=== PATIENT | male | born 1970 | race African-American/Black ===

== ENCOUNTER 2018-10-22 10:47 | Inpatient (IN) | payer OTHER ==
--- NOTE | 2018-10-22 13:38 | PDOC ---
History of Present Illness - General History Source: Patient Exam Limitations: No Limitations - History of Present Illness Initial Comments: 10/22/18 13:38 48YOM without PMH but who has been estranged from primary care or any regular doctors for the past 6 years, who p/w asymptomatic high blood pressure as measured at his dentist's office. He was supposed to have a tooth extraction today and they needed to cancel it because of the blood pressure, which he notes was in the 180s systolic. He states his blood pressure has been a bit high in the past, but never this high. Denies f/c/n/v/d/c, SHARMA, vision changes, vertigo, lightheadedness, neck pain, SOB, abdominal pain, change in urination, n /t/w focally, or other symptoms. Does not take any regular medications. <VivarParvin - Last Filed: 10/22/18 18:22> <Jamaica Maloney - Last Filed: 10/22/18 18:41> - General Chief Complaint: Blood Pressure Problem Stated Complaint: HYPERTENSION Time Seen by Provider: 10/22/18 13:26 Past History - Past Medical History COPD: No - Suicide/Smoking/Psychosocial Hx Smoking History: Never smoked <Vivar,Parvin - Last Filed: 10/22/18 18:22> <Jamaica Maloney - Last Filed: 10/22/18 18:41> - Past Medical History Allergies/Adverse Reactions: Allergies Allergy/AdvReac Type Severity Reaction Status Date / Time No Known Allergies Allergy Verified 10/22/18 11:42 Home Medications: Ambulatory Orders Amoxicillin - [Amoxicillin 875mg Tablet -] 875 mg PO BID #20 tab 10/22/18 Review of Systems - Review of Systems Able to Perform ROS?: Yes Comments:: 10/22/18 13:40 GEN: no fever, chills, malaise, generalized weakness, or weight change HEENT: no ear pain, sore throat, vision change, or eye pain CV: no chest pain, palpitations, lightheadedness, syncope, or edema RESP: no cough, wheezing, or SOB GI: no abdominal pain, nausea, vomiting, diarrhea, constipation, or white/black/ bloody stool : no dysuria, hematuria, incontinence, retention, bleeding, or discharge MSK: no neck/back pain, muscle weakness/pain, or joint swelling/pain NEURO: no headache, seizure, vertigo, numbness, tingling, or focal weakness PSYCH: no substance use, no behavior change SKIN: no jaundice, no rash ROS otherwise negative except as noted in HPI <Parvin Vivar - Last Filed: 10/22/18 18:22> *Physical Exam - Vital Signs Last Vital Signs Temp Pulse Resp BP Pulse Ox 98.4 F 128 H 16 186/114 H 100 10/22/18 11:43 10/22/18 11:43 10/22/18 11:43 10/22/18 11:43 10/22/18 11:43 - Physical Exam Comments: 10/22/18 13:41 GENERAL: well-appearing, A/Ox4, no distress, answers questions appropriately HEENT: PERRLA, EOMI, moist mucous membranes NECK/BACK: no midline ttp, no spinal stepoff or deformity, no hematoma, full ROM , neck supple CARDIOVASCULAR: regular rate/rhythm, normal S1S2, no MGR, strong peripheral pulses, capillary refill <2 seconds, extremities wwp, no edema LUNGS/RESPIRATORY: no respiratory distress, CTAB GI/ABDOMEN: symmetric [id number], normoactive BS, soft, no ttp, no midline pulsatile masses : no CVA tenderness EXTREMITIES: no muscle atrophy, no acute deformity SKIN: warm and dry, no pallor, no jaundice, no rash, no bruising, no skin breakdown, no cuts, no lesions NEUROLOGICAL: GCS 15, CN II-XII grossly intact, 5/5 strength proximally and distally, no facial droop <Parvin Vivar - Last Filed: 10/22/18 18:22> - Vital Signs Last Vital Signs Temp Pulse Resp BP Pulse Ox 98.4 F 104 H 18 172/110 H 100 10/22/18 11:43 10/22/18 18:21 10/22/18 18:21 10/22/18 18:21 10/22/18 18:21 <Jamaica Maloney - Last Filed: 10/22/18 18:41> Moderate Sedation - Procedure Monitoring Vital Signs: Procedure Monitoring Vital Signs Temperature 98.4 F 10/22/18 11:43 Pulse Rate 128 H 10/22/18 11:43 Respiratory Rate 16 10/22/18 11:43 Blood Pressure 186/114 H 10/22/18 11:43 O2 Sat by Pulse Oximetry (%) 100 10/22/18 11:43 <Parvin Vivar - Last Filed: 10/22/18 18:22> - Procedure Monitoring Vital Signs: Procedure Monitoring Vital Signs Temperature 98.4 F 10/22/18 11:43 Pulse Rate 104 H 10/22/18 18:21 Respiratory Rate 18 10/22/18 18:21 Blood Pressure 172/110 H 10/22/18 18:21 O2 Sat by Pulse Oximetry (%) 100 10/22/18 18:21 <Jamaica Maloney - Last Filed: 10/22/18 18:41> Heart Score/ECG Review #1 10/22/18 14:04 Sinus tach, rate 114, normal axis and intervals, no ischemic ST-T changes <Parvin Vivar - Last Filed: 10/22/18 18:22> ED Treatment Course - LABORATORY CBC & Chemistry Diagram: 10/22/18 14:43 10/22/18 14:43 <Parvin Vivar - Last Filed: 10/22/18 18:22> - LABORATORY CBC & Chemistry Diagram: 10/22/18 14:43 10/22/18 14:43 - ADDITIONAL ORDERS Additional order review: Laboratory Results 10/22/18 14:43 Sodium 137 Potassium 3.9 Chloride 101 Carbon Dioxide 29 Anion Gap 8 BUN 12 Creatinine 0.9 Creat Clearance w eGFR > 60 Random Glucose 232 H Calcium 8.7 Total Bilirubin 0.9 AST 21 ALT 32 Alkaline Phosphatase 83 Creatine Kinase 100 Troponin I < 0.02 Total Protein 7.5 Albumin 4.0 10/22/18 14:43 RBC 4.66 MCV 89.8 MCHC 34.8 RDW 12.8 MPV 7.6 Neutrophils % 67.0 Lymphocytes % 25.3 Monocytes % 6.2 Eosinophils % 1.1 Basophils % 0.4 - Medications Given in the ED: ED Medications Discontinued Medications Generic Name Dose Route Start Last Admin Trade Name Freq PRN Reason Stop Dose Admin Amoxicillin 875 mg 10/22/18 16:53 10/22/18 16:57 Amoxicillin - PO 10/22/18 16:54 875 mg ONCE ONE Administration Labetalol HCl 10 mg 10/22/18 14:45 10/22/18 15:21 Normodyne Injection - IVPUSH 10/22/18 14:46 10 mg ONCE ONE Administration Labetalol HCl 10 mg 10/22/18 16:40 10/22/18 16:57 Normodyne Injection - IVPUSH 10/22/18 16:41 10 mg ONCE ONE Administration Sodium Chloride 1,000 ml 10/22/18 14:41 10/22/18 15:17 Normal Saline - IV 10/22/18 14:42 1,000 ml ONCE ONE Administration <Jamaica Maloney - Last Filed: 10/22/18 18:41> Medical Decision Making - Medical Decision Making 10/22/18 13:41 Adult male patient p/w HTN without symptoms. Initial Vital Signs Temp Pulse Resp BP Pulse Ox 98.4 F 128 H 16 186/114 H 100 10/22/18 11:43 10/22/18 11:43 10/22/18 11:43 10/22/18 11:43 10/22/18 11:43 Exam: As noted in Physical Exam section. DDX IBNLT: stress/pain response, primary (essential) HTN, renal disease, medications (e.g. OCPs, NSAIDs, antidepressants, steroids), hypercortisolism ( Cheryle syndrome), primary hyperaldosteronism (Conn syndrome), pheochromocytoma , hyper/hypothyroidism, hyperparathyroidism, coarctation of aorta, obstructive sleep apnea, etc. Main emergency concern is to r/o hypertensive emergency. W/U ordered: Labs as noted below EKG TX ordered: None Unlikely hypertensive emergency at Pt has no SHARMA, AMS, visual change, neuro sxs, angina, pulmonary edema, or e/o renal failure. EKG: Reviewed; results as noted in ECG Review section. Vital Signs Temperature 98.4 F 10/22/18 11:43 Pulse Rate 110 H 10/22/18 14:29 Respiratory Rate 18 10/22/18 14:29 Blood Pressure 173/107 H 10/22/18 14:29 O2 Sat by Pulse Oximetry (%) 100 10/22/18 14:29 The patient's repeat vitals show sustained high BP and tachycardia; he is given IV labetalol as ordered. Will also do labs at this point. Laboratory Tests 10/22/18 10/22/18 14:43 14:43 WBC 5.9 RBC 4.66 Hgb 14.6 Hct 41.9 MCV 89.8 MCH 31.2 MCHC 34.8 RDW 12.8 Plt Count 314 MPV 7.6 Absolute Neuts (auto) 3.9 Neutrophils % 67.0 Lymphocytes % 25.3 Monocytes % 6.2 Eosinophils % 1.1 Basophils % 0.4 Nucleated RBC % 0 Sodium 137 Potassium 3.9 Chloride 101 Carbon Dioxide 29 Anion Gap 8 BUN 12 Creatinine 0.9 Creat Clearance w eGFR > 60 Random Glucose 232 H Calcium 8.7 Total Bilirubin 0.9 AST 21 ALT 32 Alkaline Phosphatase 83 Creatine Kinase 100 Troponin I < 0.02 Total Protein 7.5 Albumin 4.0 Patient remains asymptomatic, exam benign, repeating vitals now as below: REPEAT VS 10/22/18 18:[address] Noble; patient going to Med/Surg obs. Decision to Admit order is placed to Dr. Noble. I have placed consult order for medical secretary vp public relations Dr. Quigley. <Parvin Vivar - Last Filed: 10/22/18 18:22> *DC/Admit/Observation/Transfer - Discharge Dispostion Decision to Admit order: Yes <Parvin Vivar - Last Filed: 10/22/18 18:22> - Discharge Dispostion Decision to Admit order: Yes Decision to Admit order Date/Time: 10/22/18 18:41 <Jamaica Maloney - Last Filed: 10/22/18 18:41> Diagnosis at time of Disposition: Hyperglycemia High blood pressure Qualifiers: Hypertension type: unspecified Qualified Code(s): I10 - Essential (primary) hypertension - Discharge Dispostion Condition at time of disposition: Guarded - Prescriptions Prescriptions: Amoxicillin - [Amoxicillin 875mg Tablet -] 875 mg PO BID #20 tab - Referrals Referrals: [facility] [place] [Provider Group] - Patient Instructions Printed Discharge Instructions: DI for High Blood Pressure
[2018-10-22] MEDS ORDERED: SODIUM CHLORIDE 0.9% 500 ML INFUS.BAG IV ONE (14:41)
[2018-10-22] MEDS ORDERED: LABETALOL HCL 5 MG/1 ML (100MG/20 ML VIAL) IVPUSH ONE ×2 (14:45→16:40)
[2018-10-22 15:19] LABS: BASO % 0.4 % (0-2.0); EOS % 1.1 % (0-4.5); HEMATOCRIT 41.9 % (35.4-49); HEMOGLOBIN 14.6 GM/dL (11.7-16.9); LYMPH % 25.3 % (8-40); MCH 31.2 pg (25.7-33.7); MCHC 34.8 g/dl (32.0-35.9); MEAN CELL VOLUME 89.8 fl (80-96); MEAN PLT VOLUME 7.6 fl (7.5-11.1); MONO % 6.2 % (3.8-10.2); PLATELET COUNT 314 K/MM3 (134-434); RBC 4.66 M/mm3 (4.00-5.60); RDW 12.8 % (11.9-15.9); WHITE BLOOD COUNT 5.9 K/mm3 (4.0-10.0)
[2018-10-22 16:40] LABS: ALK PHOS 83 U/L (45-117); ANION GAP 8 MMOL/L (8-16); BILIRUBIN,TOTAL 0.9 mg/dL (0.2-1); BLOOD UREA NITROGEN 12 mg/dL (7-18); CALCIUM 8.7 mg/dL (8.5-10.1); CHLORIDE 101 mmol/L (98-107); CO2 29 mmol/L (21-32); CREATININE 0.9 mg/dL (0.55-1.3); GLUCOSE,RANDOM 232 mg/dL (74-106); POTASSIUM 3.9 mmol/L (3.5-5.1); SGOT/AST 21 U/L (15-37); SGPT/ALT 32 U/L (13-61); SODIUM 137 mmol/L (136-145); TOT PROT 7.5 g/dl (6.4-8.2)
--- NOTE | 2018-10-22 16:42 | PDOC ---
Attending Attestation - Resident Resident Name: Parvin Vivar - ED Attending Attestation I have performed the following: I have examined & evaluated the patient, The case was reviewed & discussed with the resident, I agree w/resident's findings & plan - HPI HPI: 10/22/18 16:41 The patient is a 48 year old male with prior history of HTN (not on meds), estranged from PMD x 6 years who was sent in to the ER by his dentist for high blood pressure in the 180s systolic. Patient states he was going to have a tooth extraction, which had to be cancelled because he was hypertensive in the office. Patient denies any headache, fever, chills, nausea, vomit, vision changes, lightheadedness, dizziness, shortness of breath, chest pain, or urinary changes. Allergies: NKA Past surgical history: None reported. Social history: No reported alcohol, drug or cigarette use. PCP: none - Physicial Exam PE: 10/22/18 16:41 NAD, well appearing, PERRL, EOMI, MMM, nl conjunctiva, anicteric; neck supple. lungs clear, RRR, abdomen soft nontender. VILLALBA x4, no focal neuro deficits. No peripheral edema. normal color for ethnicity, WWP. - Medical Decision Making 10/22/18 16:41 hpi as documented VS +hypertension and tachycardia; no fever. but no distress well appearing, no pain labs and lytes normal. trop neg. normal Cr. EKG _sinus tachycardia, no ischemic findings. given IV labetalol for BP for here x2 doses, without effect. amoxicillin x 10 days for right tooth infection, which was not fully assessed by dentist today due to BP. additional oral antihypertensive given, hctz dosed. unable to control BPs, with persistently elevated BPs 170-180s/110s. unable to control diastolic no e/o organ damage or ischemia however, poor control, risk of ischemia and complications admit for aggressive HTN management, medical management, BP monitor. pt made aware of impression and plan, agreeable. admit to Dr Real walker. 10/22/18 18:40 Heart Score/ECG Review - ECG Impressions Normal ECG: No Tachycardia: Sinus Comment:: 10/22/18 17:21 EKG sinus tachycardia, no interval abnormalities, narrow QRS, ST and T wave segments and morphology normal. 10/22/18 17:21
[2018-10-22] MEDS ORDERED: AMOXICILLIN 500 MG CAPSULE (FP) PO ONE (16:53)
[2018-10-22] MEDS ORDERED: AMOX TR/POT CLAV 875MG/125MG TABLETS (FP) ONE (16:55)
[2018-10-22] MEDS ORDERED: HYDROCHLOROTHIAZIDE 25 MG TABLET (FP) PO ONE (18:39)
--- NOTE | 2018-10-22 18:59 | HP ---
Admitting History and Physical - Primary Care Physician PCP: Phil Noble - Admission History of Present Illness: 48YOM without PMH but who has been estranged from primary care or any regular doctors for the past 6 years, who p/w asymptomatic high blood pressure as measured at his dentist's office. He was supposed to have a tooth extraction today and they needed to cancel it because of the blood pressure, which he notes was in the 180s systolic. He states his blood pressure has been a bit high in the past, but never this high. - Past Medical History Cardiovascular: Yes: HTN - Smoking History Smoking history: Never smoked Home Medications - Allergies Allergies/Adverse Reactions: Allergies Allergy/AdvReac Type Severity Reaction Status Date / Time No Known Allergies Allergy Verified 10/22/18 11:42 - Home Medications Home Medications: Ambulatory Orders Amoxicillin - [Amoxicillin 875mg Tablet -] 875 mg PO BID #20 tab 10/22/18 Amlodipine Besylate [Norvasc -] 10 mg PO DAILY #30 tablet 10/24/18 Glipizide [Glipizide ER] 2.5 mg PO DAILY #30 tab.er.24 10/24/18 Metoprolol Tartrate [Lopressor -] 50 mg PO BID #60 tablet 10/24/18 Miscellaneous Medical Supply [Outpatient Order] 1 each ASDIR #1 [facility] [place] [facility]iscellaneous Medical Supply [facility]] [facility] M[facility] Medical Supply [Outpatient Order] 1 each ASDIR #1 [facility] [place] Valsartan [Diovan] 80 mg PO DAILY #30 tablet 10/24/18 metFORMIN XR [Glucophage Xr -] 500 mg PO BID #60 tab.sr.24h 10/24/18 Physical Examination Vital Signs: Vital Signs Temperature 98.4 F 10/22/18 11:43 Pulse Rate 104 H 10/22/18 18:21 Respiratory Rate 18 10/22/18 18:21 Blood Pressure 172/110 H 10/22/18 18:21 O2 Sat by Pulse Oximetry (%) 100 10/22/18 18:21 Constitutional: Yes: No Distress HENT: Yes: Atraumatic Neck: Yes: Supple Cardiovascular: Yes: Regular Rate and Rhythm Respiratory: Yes: CTA Bilaterally Gastrointestinal: Yes: Normal Bowel Sounds Extremities: Yes: WNL Edema: No Neurological: Yes: Alert, Oriented Labs: CBC, BMP 10/22/18 14:43 10/22/18 14:43 Problem List - Problems (1) High blood pressure Assessment/Plan: monitor on tele start bp meds cardiology consult Code(s): I10 - ESSENTIAL (PRIMARY) HYPERTENSION Qualifiers: Hypertension type: unspecified Qualified Code(s): I10 - Essential (primary ) hypertension (2) Hyperglycemia Assessment/Plan: monitor bgms check hgba1c Code(s): R73.9 - HYPERGLYCEMIA, UNSPECIFIED Assessment/Plan Laboratory Tests 10/22/18 10/22/18 14:43 14:43 WBC 5.9 RBC 4.66 Hgb 14.6 Hct 41.9 MCV 89.8 MCH 31.2 MCHC 34.8 RDW 12.8 Plt Count 314 MPV 7.6 Absolute Neuts (auto) 3.9 Neutrophils % 67.0 Lymphocytes % 25.3 Monocytes % 6.2 Eosinophils % 1.1 Basophils % 0.4 Nucleated RBC % 0 Sodium 137 Potassium 3.9 Chloride 101 Carbon Dioxide 29 Anion Gap 8 BUN 12 Creatinine 0.9 Creat Clearance w eGFR > 60 Random Glucose 232 H Calcium 8.7 Total Bilirubin 0.9 AST 21 ALT 32 Alkaline Phosphatase 83 Creatine Kinase 100 Troponin I < 0.02 Total Protein 7.5 Albumin 4.0 Active Medications Generic Name Dose Route Start Last Admin Trade Name Freq PRN Reason Stop Dose Admin Acetaminophen 650 mg 10/22/18 21:38 Tylenol - PO Q6H PRN FEVER Amlodipine Besylate 10 mg 10/23/18 10:00 10/24/18 09:26 Norvasc - PO 10 mg DAILY PRASHANT Administration Amoxicillin/Clavulanate Potassium 1 tab 10/23/18 08:00 10/24/18 17:11 Augmentin - 875mg Tablet PO 1 tab BID@0800,1730 PRASHANT Administration Valsartan 80 mg 10/23/18 21:00 10/24/18 09:26 Diovan - PO 80 mg DAILY PRASHANT Administration
[2018-10-22] MEDS ORDERED: HYDROCHLOROTHIAZIDE 25 MG TABLET (FP) ONE (19:03)
[2018-10-22 20:05] LABS: URINE APPEARANCE CLEAR; URINE BILIRUBIN NEGATIVE (<2.0 mg/dL); URINE COLOR LTYELLOW; URINE GLUCOSE (UA) 3+ (NEGATIVE); URINE KETONE 2+ (NEGATIVE); URINE LEUK ESTERASE NEGATIVE (NEGATIVE); URINE NITRITE NEGATIVE (NEGATIVE); URINE PROTEIN NEGATIVE (NEGATIVE); URINE UROBILINOGEN NEGATIVE mg/dL (0.2-1.0)
[2018-10-22] MEDS ORDERED: ACETAMINOPHEN 325 MG TABLET (FP) PO PRN (21:38)
[2018-10-22] MEDS ORDERED: FUROSEMIDE 40 MG/4 ML INJECTABLE VIAL IVPUSH ONE (21:54)
[2018-10-22] MEDS ORDERED: metoPROLOL SUCCINATE 25 MG TAB.SR.24H (FP) PO SCH (22:00)
[2018-10-22] MEDS ORDERED: amLODIPine BESYLATE 10 MG TABLET (FP) PO STA (23:44)
[2018-10-23 00:41] VITALS: BMI 23.2
[2018-10-23] MEDS ORDERED: NITROGLYCERIN 2% OINTMENT - 1GM PACKET TD ONE (01:00)
[2018-10-23] MEDS: AMOX TR/POT CLAV 875MG/125MG TABLETS (FP) PO SCH ×2 (09:04→19:17)
[2018-10-23] MEDS: amLODIPine BESYLATE 10 MG TABLET (FP) PO SCH (09:04)
--- NOTE | 2018-10-23 10:53 | CON.CARD ---
Consult Consult Specialty:: Cardiology Referred by:: Dr. Noble Reason for Consultation:: Cardiac evaluation - History of Present Illness Chief Complaint: Admitted with uncontrolled blood pressure History of Present Illness: Patient is a 48 year old male with underlying history of HTN poorly controlled and has been noncompliant with follow ups and medication now presents with elevated blood pressure to 180 systolic. He love to the dentist office and found that his BP was severely elevated, therefore; tooth extraction was canceled and instead he was referred admission. He denies chest pain, SOB or palpitations. He denies paroxysmal nocturnal dyspnea or orthopnea. He denies fever or chills. He denies nausea, vomiting, diarrhea or abdominal pain. He denies headache or lightheadedness. Of note, his BP recording reveals orthostasis with supine BP of 150/98 mmHg and standing of 115/98 mmHg with a HR of 120's. - History Source History Provided By: Patient, Medical Record Limitations to Obtaining History: No Limitations - Past Medical History Cardio/Vascular: Yes: HTN - Past Surgical History Past Surgical History: Yes: None - Alcohol/Substance Use Hx Alcohol Use: No History of Substance Use: reports: None - Smoking History Smoking history: Never smoked Have you smoked in the past 12 months: No Home Medications - Allergies Allergies/Adverse Reactions: Allergies Allergy/AdvReac Type Severity Reaction Status Date / Time No Known Allergies Allergy Verified 10/22/18 11:42 - Home Medications Home Medications: Ambulatory Orders Amoxicillin - [Amoxicillin 875mg Tablet -] 875 mg PO BID #20 tab 10/22/18 Family Disease History - Family Disease History Other Family History: HTN Review of Systems - Review of Systems Constitutional: denies: Chills, Fever Cardiovascular: denies: Chest Pain, Palpitations, Shortness of Breath Respiratory: denies: Cough, Hemoptysis, Orthopnea, PND, SOB, SOB on Exertion, Wheezing Gastrointestinal: denies: Abdominal Pain, Constipation, Diarrhea, Melena, Nausea , Rectal Bleeding, Vomiting Genitourinary: denies: Dysuria, Hematuria Musculoskeletal: denies: Back Pain, Joint Pain, Muscle Pain Neurological: denies: Dizziness, Headache, Seizure, Syncope Vital Signs: Vital Signs Temperature 97.9 F 10/23/18 07:30 Pulse Rate 114 H 10/23/18 08:58 Respiratory Rate 18 10/23/18 07:30 Blood Pressure 150/98 10/23/18 08:58 O2 Sat by Pulse Oximetry (%) 100 10/23/18 07:30 Eyes: Yes: PERRL HENT: Yes: Atraumatic Neck: Yes: Supple Respiratory: Yes: CTA Bilaterally Gastrointestinal: Yes: Normal Bowel Sounds, Soft. No: Tenderness Cardiovascular: Yes: Regular Rate and Rhythm JVD: No Carotid Bruit: No PMI: Non-Displaced Heart Sounds: Yes: S1, S2 Murmur: No: Systolic Murmur, Diastolic Murmur Edema: No - Other Data Labs, Other Data: CBC, BMP 10/22/18 14:43 10/22/18 14:43 Troponin, BNP 10/22/18 10/22/18 10/23/18 14:43 21:45 05:30 Troponin I < 0.02 < 0.02 < 0.02 Laboratory Results - last 24 hr 10/22/18 10/22/18 10/22/18 14:43 14:43 19:30 WBC 5.9 RBC 4.66 Hgb 14.6 Hct 41.9 MCV 89.8 MCH 31.2 MCHC 34.8 RDW 12.8 Plt Count 314 MPV 7.6 Absolute Neuts (auto) 3.9 Neutrophils % 67.0 Lymphocytes % 25.3 Monocytes % 6.2 Eosinophils % 1.1 Basophils % 0.4 Nucleated RBC % 0 Sodium 137 Potassium 3.9 Chloride 101 Carbon Dioxide 29 Anion Gap 8 BUN 12 Creatinine 0.9 Creat Clearance w eGFR > 60 Random Glucose 232 H Calcium 8.7 Total Bilirubin 0.9 AST 21 ALT 32 Alkaline Phosphatase 83 Creatine Kinase 100 Troponin I < 0.02 Total Protein 7.5 Albumin 4.0 Urine Color Ltyellow Urine Appearance Clear Urine pH 5.0 Ur Specific [place] 1.030 Urine Protein Negative Urine Glucose (UA) 3+ H Urine Ketones 2+ H Urine Blood Negative Urine Nitrite Negative Urine Bilirubin Negative Urine Urobilinogen Negative Ur Leukocyte Esterase Negative Sinus tachycardia, poor R progression Echo: Pending Imaging - Results EKG: Report Reviewed Problem List - Problems (1) HTN (hypertension) Code(s): I10 - ESSENTIAL (PRIMARY) HYPERTENSION Qualifiers: Hypertension type: essential hypertension Qualified Code(s): I10 - Essential (primary) hypertension (2) Orthostasis Code(s): I95.1 - ORTHOSTATIC HYPOTENSION (3) Noncompliance Code(s): Z91.19 - PATIENT'S NONCOMPLIANCE W OTH MEDICAL TREATMENT AND REGIMEN Assessment/Plan 1. HTN - labile 2. Periods of orthostasis, etiology unclear 3. Noncompliance PLAN: 1. Currently on Amlodipine 2. May consider use of beta alana as tolerated. 3. Transthoracic echocardiography to assess LV/RV and valvular function 4. Continue to monitor for orthostasis and monitor on telemetry 5. Currently admitted under observation, but may need to switch to inpatient status to further assess above etiology and treatment of orthostasis Further plans are to follow Mark Alvarez MD
[2018-10-23] MEDS: METOPROLOL TARTRATE 25 MG TABLET (FP) PO SCH ×2 (14:26→21:31)
--- NOTE | 2018-10-23 14:34 | ECHO ---
Name: DINO PHAM, JR Exam:Adult Echocardiogram Study Date: 10/23/2018 10:59 AM Age: 48 yrs Reason For Study: HTN Height: 75 in Weight: 180 lb BSA: 2.1 m2 MMode/2D Measurements & Calculations IVSd: 1.0 cm Ao root diam: 3.0 cm LVIDd: 3.6 cm LA dimension: 3.0 cm LVIDs: 2.0 cm LVPWd: 0.96 cm EDV(Teich): 53.3 ml ESV(Teich): 13.4 ml Doppler Measurements & Calculations MV E max juvencio: 47.9 cm/sec Ao V2 max: 117.3 cm/sec MV A max juvencio: 70.1 cm/sec Ao max P.5 mmHg MV E/A: 0.68 LV V1 max P.5 mmHg TR max juvencio: 234.8 cm/sec LV V1 max: 117.5 cm/sec TR max P.1 mmHg Med Peak E' Juvencio: 9.1 cm/sec Med E/e': 5.3 Lat Peak E' Juvencio: 8.1 cm/sec Lat E/e': 5.9 Procedure A complete two-dimensional transthoracic echocardiogram was performed (2D, M-mode, Doppler and color flow Doppler). The patient was in normal sinus rhythm during the exam. Left Ventricle The left ventricular size, thickness and function are normal. Ejection Fraction = 65%. The transmitra l spectral Doppler flow pattern is suggestive of impaired LV relaxation. The left ventricular wall shaheen on is normal. Right Ventricle The right ventricle is normal in size and function. Atria Normal left and right atrial size and function. Mitral Valve The mitral valve is normal in structure and function. There is trace mitral regurgitation. Tricuspid Valve The tricuspid valve is normal in structure and function. There is trace tricuspid regurgitation. Righ t ventricular systolic pressure is normal. Aortic Valve The aortic valve is normal in structure and function. No aortic regurgitation is present. Pulmonic Valve The pulmonic valve is not well visualized. Great Vessels The aortic root is normal size. Pericardium/Pleura There is no pericardial effusion. There is no pleural effusion. Interpretation Summary The left ventricular size, thickness and function are normal Ejection Fraction = 65%. The right ventricle is normal in size and function. Normal left and right atrial size and function. There is trace mitral regurgitation. There is trace tricuspid regurgitation. Right ventricular systolic pressure is normal. MD Todd Singh 10/23/2018 02:34 PM
--- NOTE | 2018-10-23 15:08 | EKG ---
Test Reason : Blood Pressure : / mmHG Vent. Rate : 115 BPM Atrial Rate : 115 BPM P-R Int : 166 ms QRS Dur : 080 ms QT Int : 328 ms P-R-T Axes : 062 073 054 degrees QTc Int : 453 ms SINUS TACHYCARDIA POSSIBLE ANTERIOR INFARCT , AGE UNDETERMINED ABNORMAL ECG NO PREVIOUS ECGS AVAILABLE Confirmed by Todd Singh MD ([id number]) on 10/23/2018 3:07:53 PM Referred By: Confirmed By:Todd Singh MD
--- NOTE | 2018-10-23 16:02 | PN ---
Progress Note, Physician - Current Medication List Current Medications: Active Medications Acetaminophen (Tylenol -) 650 mg PO Q6H PRN PRN Reason: FEVER Amlodipine Besylate (Norvasc -) 10 mg PO DAILY [facility] Last Admin: 10/23/18 09:04 Dose: 10 mg Amoxicillin/Clavulanate Potassium (Augmentin - 875mg Tablet) 1 tab PO BID@0800, 1730 [facility] Last Admin: 10/23/18 09:04 Dose: 1 tab Metoprolol Tartrate (Lopressor -) 25 mg PO BID [facility] Last Admin: 10/23/18 14:26 Dose: 25 mg - Objective Vital Signs: Vital Signs Temperature 98.1 F 10/23/18 14:01 Pulse Rate 116 H 10/23/18 14:42 Respiratory Rate 18 10/23/18 07:30 Blood Pressure 148/81 10/23/18 14:42 O2 Sat by Pulse Oximetry (%) 100 10/23/18 07:30 Constitutional: Yes: No Distress HENT: Yes: Atraumatic Neck: Yes: Supple Cardiovascular: Yes: Regular Rate and Rhythm Respiratory: Yes: CTA Bilaterally Gastrointestinal: Yes: Normal Bowel Sounds Extremities: Yes: WNL Edema: No Neurological: Yes: Alert, Oriented Labs: CBC, BMP 10/22/18 14:43 10/22/18 14:43 Problem List - Problems (1) High blood pressure Code(s): I10 - ESSENTIAL (PRIMARY) HYPERTENSION Qualifiers: Hypertension type: unspecified Qualified Code(s): I10 - Essential (primary ) hypertension (2) Hyperglycemia Assessment/Plan: monitor bgms Code(s): R73.9 - HYPERGLYCEMIA, UNSPECIFIED (3) Type 2 diabetes mellitus Assessment/Plan: on po meds insulin coverage endo consult Code(s): E11.9 - TYPE 2 DIABETES MELLITUS WITHOUT COMPLICATIONS Qualifiers: Diabetes mellitus computer terminal operator insulin use: without detention use
[2018-10-23] MEDS ORDERED: metFORMIN HCL 500 MG TABLET (FP) PO SCH (18:32)
--- NOTE | 2018-10-23 19:01 | CONSULT ---
Consult Consult Specialty:: Endocrinology Referred by:: Dr Noble Reason for Consultation:: New Onset DM - History of Present Illness Chief Complaint: High blood pressure History of Present Illness: This is a 48 Y/O man with h/o rash ?Rosacea treated with Steroidsa about 2 weeks ago but hasn't seen regular doctors for the past 6 years, was referred to ED as his blood pressure was found to be 180s systolic at his dentist's office. . He states his blood pressure has been a bit high in the past, but never this high. Denies any polyuria, polydipsia or nocturia. No recent change in wt. Had lost wt many years ago after he started a diet and exercise program. Denies f/c/ n/v/d/c, SHARMA, vision changes, vertigo, lightheadedness, neck pain, SOB, abdominal pain, change in urination, n/t/w focally, or other symptoms. - History Source History Provided By: Patient, Medical Record - Past Medical History Cardio/Vascular: Yes: HTN - Past Surgical History Past Surgical History: Yes: None - Alcohol/Substance Use Hx Alcohol Use: No History of Substance Use: reports: None - Smoking History Smoking history: Never smoked Have you smoked in the past 12 months: No Home Medications - Allergies Allergies/Adverse Reactions: Allergies Allergy/AdvReac Type Severity Reaction Status Date / Time No Known Allergies Allergy Verified 10/22/18 11:42 - Home Medications Home Medications: Ambulatory Orders Amoxicillin - [Amoxicillin 875mg Tablet -] 875 mg PO BID #20 tab 10/22/18 Family Disease History - Family Disease History Other Family History: HTN. Uncle has DM Review of Systems - Review of Systems Constitutional: reports: No Symptoms Eyes: reports: No Symptoms HENT: reports: No Symptoms Neck: reports: No Symptoms Respiratory: reports: No Symptoms Gastrointestinal: reports: No Symptoms Genitourinary: reports: No Symptoms Musculoskeletal: reports: No Symptoms Integumentary: reports: No Symptoms Neurological: reports: No Symptoms Psychiatric: reports: No Symptoms Physical Exam Vital Signs: Vital Signs Temperature 98.2 F 10/23/18 16:55 Pulse Rate 105 H 10/23/18 16:56 Respiratory Rate 18 10/23/18 16:55 Blood Pressure 144/110 H 10/23/18 16:56 O2 Sat by Pulse Oximetry (%) 100 10/23/18 07:30 Constitutional: Yes: No Distress, Calm Eyes: Yes: Conjunctiva Clear, EOM Intact HENT: Yes: Atraumatic, Normocephalic Neck: Yes: Supple, Trachea Midline Cardiovascular: Yes: Regular Rate and Rhythm Respiratory: Yes: Regular, CTA Bilaterally Gastrointestinal: Yes: Normal Bowel Sounds, Soft Musculoskeletal: Yes: WNL Extremities: Yes: WNL Edema: No Neurological: Yes: Alert, Oriented Labs: CBC, BMP 10/22/18 14:43 10/22/18 14:43 Assessment/Plan AP: New Onset DM A1c 14.3 HTN Tachycardia Diet exercise discussed Diabetes education done All questions answered Nutrition consult BGM QACHS Novolog SS coverage Start Metformin 500mg BID with food Will F/u
[2018-10-23] MEDS: VALSARTAN 80 MG TABLET (UD) PO SCH (21:05)
[2018-10-23] MEDS: INSULIN SLIDING SCALE (NOVOLOG) 1 VIAL SQ SCH (21:29)
[2018-10-24] MEDS: INSULIN SLIDING SCALE (NOVOLOG) 1 VIAL SQ SCH ×4 (06:34→20:16)
[2018-10-24 08:02] LABS: BASO % 0.4 % (0-2.0); EOS % 2.4 % (0-4.5); HEMOGLOBIN 14.4 GM/dL (11.7-16.9); LYMPH % 28.8 % (8-40); MCH 31.7 pg (25.7-33.7); MEAN PLT VOLUME 8.3 fl (7.5-11.1); MONO % 9.4 % (3.8-10.2); PLATELET COUNT 278 K/MM3 (134-434); RBC 4.54 M/mm3 (4.00-5.60); RDW 12.8 % (11.9-15.9); WHITE BLOOD COUNT 5.3 K/mm3 (4.0-10.0)
--- NOTE | 2018-10-24 08:34 | PN ---
Progress Note (short form) - Note Progress Note: Denies any complaints Vital Signs Period Temp Pulse Resp BP Sys/Darling Pulse Ox Last 24 Hr 97.9 F-98.2 F 105-127 18-18 117-192/81-126 100 PE: AOx3 Neck: supple, No JVD HHENT: PERRL, EOMI Lungs: CTA CVS: S1S2 Abd: Benign Ext: No edema Neuro: No focal deficit CMP Sodium 137 mmol/L (136-145) 10/22/18 14:43 Potassium 3.9 mmol/L (3.5-5.1) 10/22/18 14:43 Chloride 101 mmol/L (98-107) 10/22/18 14:43 Carbon Dioxide 29 mmol/L (21-32) 10/22/18 14:43 Anion Gap 8 MMOL/L (8-16) 10/22/18 14:43 BUN 12 mg/dL (7-18) 10/22/18 14:43 Creatinine 0.9 mg/dL (0.55-1.3) 10/22/18 14:43 Creat Clearance w eGFR > 60 (>60) 10/22/18 14:43 POC Glucometer 212 UNITS (80-120) 10/24/18 05:37 Random Glucose 232 mg/dL (74-106) H 10/22/18 14:43 Hemoglobin A1c % 14.3 % (4.2-6.3) H 10/23/18 15:50 Calcium 8.7 mg/dL (8.5-10.1) 10/22/18 14:43 Total Bilirubin 0.9 mg/dL (0.2-1) 10/22/18 14:43 AST 21 U/L (15-37) 10/22/18 14:43 ALT 32 U/L (13-61) 10/22/18 14:43 Alkaline Phosphatase 83 U/L (45-117) 10/22/18 14:43 Creatine Kinase 94 U/L (26-308) 10/23/18 19:39 Troponin I < 0.02 ng/ml (0.00-0.05) 10/23/18 19:39 Total Protein 7.5 g/dl (6.4-8.2) 10/22/18 14:43 Albumin 4.0 g/dl (3.4-5.0) 10/22/18 14:43 Current Medications Generic Name Dose Route Start Last Admin Trade Name Violette PRN Reason Stop Dose Admin Acetaminophen 650 mg 10/22/18 21:38 Tylenol - PO Q6H PRN FEVER Amlodipine Besylate 10 mg 10/23/18 10:00 10/23/18 09:04 Norvasc - PO 10 mg DAILY PRASHANT Administration Amoxicillin/Clavulanate Potassium 1 tab 10/23/18 08:00 10/23/18 19:17 Augmentin - 875mg Tablet PO 1 tab BID@0800,1730 PRASHANT Administration Insulin Aspart 1 vial 10/24/18 07:00 10/24/18 06:34 Novolog Vial Sliding Scale - SQ 4 units TIDAC PRASHANT Administration Protocol Insulin Aspart 1 vial 10/23/18 22:00 10/23/18 21:29 Novolog Vial Sliding Scale - SQ 8 units HS PRASHANT Administration Protocol Metformin HCl 500 mg 10/23/18 22:00 10/23/18 21:31 Glucophage Xr - PO 500 mg BID PRASHANT Administration Metoprolol Tartrate 25 mg 10/23/18 11:15 10/23/18 21:31 Lopressor - PO 25 mg BID PRASHANT Administration Valsartan 80 mg 10/23/18 21:00 10/23/18 21:05 Diovan - PO 80 mg DAILY PRASHANT Administration AP: New Onset DM A1c 14.3 HTN Tachycardia Diet exercise discussed Diabetes education done All questions answered Nutrition consult Teach pt to self monitor blood glucose and self inject insulin BGM QACHS Novolog SS coverage Metformin 500mg BID with food Will add Glipizide 2.5 mg BID premeals if blood sugar persist to be >200s Will F/u
[2018-10-24 08:47] LABS: ALBUMIN 3.4 g/dl (3.4-5.0); ALK PHOS 78 U/L (45-117); ANION GAP 10 MMOL/L (8-16); BILIRUBIN,TOTAL 1.1 mg/dL (0.2-1); BLOOD UREA NITROGEN 8 mg/dL (7-18); CALCIUM 8.4 mg/dL (8.5-10.1); CHLORIDE 97 mmol/L (98-107); CHOLESTEROL 276 mg/dL (50-200); CO2 27 mmol/L (21-32); CREATININE 0.9 mg/dL (0.55-1.3); GLUCOSE,RANDOM 206 mg/dL (74-106); HDL CHOLESTEROL 60 mg/dL (40-60); SGOT/AST 33 U/L (15-37); SGPT/ALT 35 U/L (13-61); SODIUM 134 mmol/L (136-145); TRIGLYCERIDES 123 mg/dL (0-150)
--- NOTE | 2018-10-24 09:06 | PN ---
Progress Note, Physician History of Present Illness: BP improved, denies chest pain, dyspnea, headache. - Current Medication List Current Medications: Active Medications Acetaminophen (Tylenol -) 650 mg PO Q6H PRN PRN Reason: FEVER Amlodipine Besylate (Norvasc -) 10 mg PO DAILY [facility] Last Admin: 10/23/18 09:04 Dose: 10 mg Amoxicillin/Clavulanate Potassium (Augmentin - 875mg Tablet) 1 tab PO BID@0800, 1730 [facility] Last Admin: 10/23/18 19:17 Dose: 1 tab Insulin Aspart (Novolog Vial Sliding Scale -) 1 vial SQ TIDAC [facility]; Protocol Last Admin: 10/24/18 06:34 Dose: 4 units Insulin Aspart (Novolog Vial Sliding Scale -) 1 vial SQ HS [facility]; Protocol Last Admin: 10/23/18 21:29 Dose: 8 units Metformin HCl (Glucophage Xr -) 500 mg PO BID [facility] Last Admin: 10/23/18 21:31 Dose: 500 mg Metoprolol Tartrate (Lopressor -) 25 mg PO BID [facility] Last Admin: 10/23/18 21:31 Dose: 25 mg Valsartan (Diovan -) 80 mg PO DAILY [facility] Last Admin: 10/23/18 21:05 Dose: 80 mg - Objective Vital Signs: Vital Signs Temperature 97.9 F 10/24/18 05:00 Pulse Rate 106 H 10/24/18 05:00 Respiratory Rate 18 10/24/18 05:00 Blood Pressure 141/87 10/24/18 05:00 O2 Sat by Pulse Oximetry (%) 100 10/23/18 21:00 Constitutional: Yes: No Distress, Calm, Thin Neck: Yes: Supple Cardiovascular: Yes: Regular Rate and Rhythm Respiratory: Yes: Regular, CTA Bilaterally Gastrointestinal: Yes: Normal Bowel Sounds, Soft Edema: No Labs: CBC, BMP 10/24/18 05:30 10/24/18 05:30 - ....Imaging EKG: Report Reviewed (Tele: NSR) Problem List - Problems (1) Hypertensive urgency Code(s): I16.0 - HYPERTENSIVE URGENCY (2) Hyperglycemia Code(s): R73.9 - HYPERGLYCEMIA, UNSPECIFIED (3) Type 2 diabetes mellitus Code(s): E11.9 - TYPE 2 DIABETES MELLITUS WITHOUT COMPLICATIONS Qualifiers: Diabetes mellitus mother helper insulin use: without snf use Assessment/Plan 10/23/2018 Echo: Normal LV and RV size and fxn LVEF 65%, normal atrial sizes, tr MR, TR 1. HTN urgency resolving 2. Newly diagnosed Type 2 DM Ha1c 14.3% 3. Noncompliance PLAN: 1. Continue Amlodipine 10 qd and increase Lopressor 50 bid 2. Diovan 80 qd started for renovascular ptotection with uptitration as tolerated 3. D/c planning
[2018-10-24] MEDS: amLODIPine BESYLATE 10 MG TABLET (FP) PO SCH (09:26)
[2018-10-24] MEDS: VALSARTAN 80 MG TABLET (UD) PO SCH (09:26)
[2018-10-24] MEDS: AMOX TR/POT CLAV 875MG/125MG TABLETS (FP) PO SCH ×2 (09:27→17:11)
[2018-10-24] MEDS: METOPROLOL TARTRATE 25 MG TABLET (FP) PO SCH (09:27)
--- NOTE | 2018-10-24 19:00 | DS ---
Physical Examination Vital Signs: Vital Signs Temperature 97.8 F 10/24/18 14:00 Pulse Rate 111 H 10/24/18 14:00 Respiratory Rate 18 10/24/18 09:00 Blood Pressure 142/100 10/24/18 14:00 O2 Sat by Pulse Oximetry (%) 100 10/24/18 09:00 Constitutional: Yes: No Distress HENT: Yes: Atraumatic Neck: Yes: Supple Cardiovascular: Yes: Regular Rate and Rhythm Respiratory: Yes: CTA Bilaterally Gastrointestinal: Yes: Normal Bowel Sounds Extremities: Yes: WNL Edema: No Peripheral Pulses WNL: Yes Neurological: Yes: Alert, Oriented Labs: CBC, BMP 10/24/18 05:30 10/24/18 05:30 Discharge Summary Reason For Visit: HYPERTENSION Current Active Problems HTN (hypertension) (Acute) High blood pressure (Acute) Hyperglycemia (Acute) Hypertensive urgency (Acute) Noncompliance (Acute) Orthostasis (Acute) Type 2 diabetes mellitus (Acute) Condition: Guarded - Instructions Diet, Activity, Other Instructions: see dr mejia next monday 2pm patient need to rest at home until next monday monitor blood sugar and bp twice daily and write it down Referrals: Phil Mejia MD [Staff Physician] - Rangel Beard MD [Staff Physician] - Meron Henry MD [Staff Physician] - - Home Medications Comprehensive Discharge Medication List: Ambulatory Orders Amoxicillin - [Amoxicillin 875mg Tablet -] 875 mg PO BID #20 tab 10/22/18 Amlodipine Besylate [Norvasc -] 10 mg PO DAILY #30 tablet 10/24/18 Glipizide [Glipizide ER] 2.5 mg PO DAILY #30 tab.er.24 10/24/18 Metoprolol Tartrate [Lopressor -] 50 mg PO BID #60 tablet 10/24/18 Valsartan [Diovan] 80 mg PO DAILY #30 tablet 10/24/18 metFORMIN XR [Glucophage Xr -] 500 mg PO BID #60 tab.sr.24h 10/24/18 nc home
[2018-10-24 19:06] VITALS: TEMP 97.9
[2018-10-24] MEDS ORDERED: METOPROLOL TARTRATE 50 MG TABLET (FP) PO SCH ×2 (20:00→22:00)
[2018-10-24 20:26] VITALS: BP 148/105; PULSE 118
== END 2018-10-24 20:37 | disposition home or self-care (01) | DRG 305 ==
LOC: JER 10:47 → JERBED 18:21 → J6S 21:11 → J4W 23:13 → OBSVTOIN 10-23 11:50
PROVIDERS: ADMIT Internal Medicine; ATTEND Internal Medicine
DX: I16.0 Hypertensive urgency (principal); E11.65 Type 2 diabetes mellitus with hyperglycemia; I10 Essential (primary) hypertension; I95.1 Orthostatic hypotension; Z79.84 Long term (current) use of oral hypoglycemic drugs; Z91.14 Patient's other noncompliance with medication regimen
CPT/HCPCS: 36415; 76775-TC; 80053; 80061; 81003; 82550; 82962; 83036; 83721; 84443; 84484; 85025; 93005; 93010; 93306-TC; 99282-25; G0378

== ENCOUNTER 2020-11-22 23:57 | Emergency (ER) | payer OTHER ==
[2020-11-23 00:26] VITALS: BP 184/92; PULSE 104; TEMP 97.8; BMI 22.5
[2020-11-23] MEDS ORDERED: LIDOCAINE 1%/EPI 1:100000 (50 ML MULTI DOSE VIAL) INF ONE (01:15)
[2020-11-23] MEDS ORDERED: LIDOCAINE 1%/EPI 1:100000 (50 ML MULTI DOSE VIAL) ONE (01:18)
== END 2020-11-23 02:26 | disposition home or self-care (01) ==
LOC: JER 23:57
PROC: 0JQ10ZZ Repair Face Subcutaneous Tissue and Fascia, Open Approach (ICD-10-PCS; principal; 2020-11-22)
DX: S01.81XA Laceration without foreign body of other part of head, initial encounter (principal)
CPT/HCPCS: 99283-25

== ENCOUNTER 2020-11-30 18:57 | Emergency (ER) | payer OTHER ==
[2020-11-30 19:21] VITALS: TEMP 98.3; BMI 20.6
[2020-11-30 20:21] VITALS: BP 240/144; PULSE 137
== END 2020-11-30 21:14 | disposition left against medical advice (07) ==
LOC: JER 18:57
DX: Z48.02 Encounter for removal of sutures (principal)
CPT/HCPCS: 93005; 93010; 99283-25